=== PATIENT | male | born 1965 | race Caucasian/White ===

== ENCOUNTER 2016-08-10 22:53 | Emergency (ER) | payer OTHER ==
[~2016-08-10] VITALS: Ht 182.9 cm; Wt 99.8 kg
[2016-08-10 23:06] VITALS: BP 136/98
[2016-08-10] MEDS ORDERED: MORPHINE SULFATE 10 MG/ML VIAL. IM ONE (23:30)
[2016-08-10] MEDS ORDERED: DIAZEPAM 10 MG/2 ML DISP.SYRIN. IM ONE (23:30)
--- NOTE | 2016-08-11 00:13 | PHYS DOC ---
Past Medical History Past Medical History: No Pertinent History Past Surgical History: No Surgical History Additional Information: nonsmoker Alcohol Use: Occasionally Drug Use: None Adult General Chief Complaint Chief Complaint: BACK PAIN OR INJURY [facility] HPI Patient is a 51 year old male who presents with severe low back pain that started 5 days ago after lifting a door and twisting his body. He saw his PCP on Friday of this week and was prescribed [place], Naproxen, and Flexeril. He has been taking these without much relief. He reports that the pain became worse today. He denies any new injury. He was seen at an urgent care today and was given a Toradol shot. He states that this did not help his pain. He no longer has pain in the low back. It is now in the right buttock and hip area with radiation down the right leg. He denies any loss of bowel or bladder control, saddle anesthesia, focal weakness or numbness, nausea, vomiting, abdominal pain, or urinary symptoms. He had a similar injury a few weeks ago. He saw his chiropractor and had relief of the pain with an adjustment. His PCP is Dr. Nathan. Review of Systems Review of Systems Constitutional: Denies fever or chills. [] GI: Denies abdominal pain, nausea, vomiting. [] : Denies dysuria, hematuria or urinary frequency. [] Musculoskeletal: Denies joint pain. Reports low back pain with radiation down the right leg. Integument: Denies rash or skin lesions. [] Neurologic: Denies headache, focal weakness or sensory changes. Denies incontinence or saddle anesthesia. All systems reviewed and negative unless otherwise stated in the HPI. Current Medications Current Medications Current Medications Medications (Trade) Dose Ordered Sig/[facility] Start Time Stop Time Status Last Admin Dose Admin Diazepam (Valium) 10 mg 1X ONCE 08/10/16 23:30 08/10/16 23:31 DC 08/10/16 23:30 10 MG Morphine Sulfate 5 mg 1X ONCE 08/10/16 23:30 08/10/16 23:31 DC 08/10/16 23:30 5 MG Orphenadrine Citrate (Norflex) 60 mg 1X ONCE 08/11/16 00:30 08/11/16 00:31 DC 08/11/16 00:08 60 MG Allergies Allergies Allergies Coded Allergies Type Severity Reaction Last Updated Verified No Known Drug Allergies 08/10/16 No Physical Exam Physical Exam Constitutional: Well developed, well nourished, no acute distress, non-toxic appearance. [] HENT: Normocephalic, atraumatic, oropharynx moist. [] Eyes: PERRLA, EOMI, conjunctiva normal, no discharge. [] Neck: Normal range of motion, no tenderness, supple, no stridor. [] Cardiovascular: Heart rate regular rhythm, no murmur. [] Lungs & Thorax: Bilateral breath sounds clear to auscultation without wheezes, rales, or rhonchi. [] Abdomen: Bowel sounds normal, soft, no tenderness, no masses, no pulsatile masses. [] Skin: Warm, dry, no erythema, no rash. [] Back: No midline tenderness, no CVA tenderness. There is tenderness over the lateral right buttock that causes pain to radiate down the right leg with palpation. Extremities: No tenderness, ROM intact, no edema. Distal pulses equal bilaterally. [] Neurologic: Alert and oriented X 3, normal motor function, normal sensory function, no focal deficits noted. [] Psychologic: Affect normal, judgement normal, mood normal. [] Current Patient Data Vital Signs Vital Signs Date Time Temp Pulse Resp B/P Pulse Ox O2 Delivery O2 Flow Rate FiO2 08/10/16 23:30 22 Room Air 08/10/16 23:06 97.4 124 100 97.4 EKG EKG [] Radiology/Procedures Radiology/Procedures [] Course & Med Decision Making Course & Med Decision Making Pertinent Labs and Imaging studies reviewed. (See chart for details) The patient presents with low back pain with radiation down the right leg. Upon arrival to the emergency department, he appeared to be in a significant amount of pain. There are no neurologic deficits on exam and he does not have any signs or symptoms of cauda equina syndrome. He was given IM morphine and valium with improvement in his pain. He continued to have very painful spasms in his back. He received IM Norflex to help further decrease the muscle spasms. His pain improved. He is discharged home with prescriptions for Percocet and Valium. He is instructed to follow up with his doctor on Friday morning. Return precautions were discussed. He verbalizes understanding and agrees with plan. Evion Disclaimer Dragon Disclaimer This electronic medical record was generated, in whole or in part, using a voice recognition dictation system. Departure Departure Impression: Primary Impression: Sciatica Disposition: HOME, SELF-CARE Condition: IMPROVED Referrals: JEET NATHAN (PCP) Patient Instructions: Sciatica, [id number] Additional Instructions: Please take the prescribed medications as directed. Do not drive or operate heavy machinery while taking these medications. Please follow up with your doctor on Friday. Return to the emergency department if you have loss of bowel or bladder control , numbness between your legs, or other new or concerning symptoms. Scripts Diazepam (Valium)5 Mg Tablet5 Mg PO TID #20 TAB Prov:BAKARI FLYNN 08/11/16 Oxycodone/Apap 5-325 (Percocet 5-325 Mg Tablet)1 Each Tablet1 Tab PO PRN Q6HRS PRN PAIN #20 TAB Prov:BAKARI FLYNN 08/11/16 Problem Qualifiers Primary Impression: Sciatica Laterality: right Qualified Code: M54.31 - Sciatica, right side BAKARI FLYNN Aug 11, 2016 00:13
[2016-08-11] MEDS ORDERED: ORPHENADRINE CITRATE 60 MG/2 ML VIAL. IM ONE (00:30)
[2016-08-11] MEDS ORDERED: OXYC-323 PO (00:46)
[2016-08-11] MEDS ORDERED: DIAZ5TAB PO (00:46)
== END 2016-08-11 00:53 | disposition home or self-care (01) ==
LOC: ER 22:53
DX: M54.31 Sciatica, right side (principal)
CPT/HCPCS: 96372; 99284; J2270; J2360; J3360